=== PATIENT | male | born 1925 | race Caucasian/White ===

== ENCOUNTER 2017-04-22 07:15 | Observation (INO) | payer MEDICARE ==
[~2017-04-22] VITALS: Ht 152.4 cm; Wt 52.5 kg
[~2017-04-22 07:15] MED LIST: CIAL5TAB PO; CITA10TA4 PO; LEVO50TA4 PO; PRIM50TA5 PO; SIMV40TA PO; TAMS0.4C4 PO
[2017-04-22 08:15] VITALS: BP 120/65; PULSE 65; RESP 20; TEMP 98.1; O2SAT 95
[2017-04-22] MEDS ORDERED: METOPROLOL TARTRATE 25 MG TAB PO PRN (08:15)
[2017-04-22] MEDS ORDERED: INSULIN HUMAN REGULAR 1,000 UNITS/10 ML VIAL SQ PRN (08:15)
[2017-04-22] MEDS ORDERED: SODIUM CHLORID 0.9% 500 ML IV PRN (08:15)
[2017-04-22] MEDS ORDERED: CLINDAMYCIN 600 MG/NS 100 ML IV ONE ×2 (08:15)
[2017-04-22] MEDS ORDERED: POVIDONE IODINE 5% (ANTISEPSIS KIT) 4 APPLICATIONS EACH NARE PRN (08:15)
[2017-04-22] MEDS ORDERED: CHLORHEXIDINE GLUCONATE 2 % 1 PACK (2 CLOTHS) TOPICAL PRN (08:15)
[2017-04-22] MEDS ORDERED: LACTATED RINGER'S 1000 ML IV PRN (08:15)
[2017-04-22] MEDS ORDERED: SODIUM CHLORIDE 0.9% INJ 100 ML ONE (08:20)
--- NOTE | 2017-04-22 08:50 | EKG ---
Date Performed: 04/22/2017 Time Performed: 07:44:54 PTAGE: 89 years EKG: Sinus rhythm NORMAL ECG NO PREVIOUS TRACING DOCTOR: Florencio Sainz Interpretating Date/Time 04/22/2017 08:49:37
[2017-04-22] MEDS ORDERED: LIDOCAINE 1%/EPINEPHrine 1:100,000 SOLN 30 ML VIAL INFIL ONE (10:35)
[2017-04-22] MEDS ORDERED: THROMBIN (TOPICAL) 5,000 UNIT VIAL ONE (11:24)
[2017-04-22] MEDS ORDERED: GELFOAM SIZE 100 ONE (11:24)
[2017-04-22] MEDS ORDERED: PROPOFOL 200 MG/20 ML AMP IV ONE (12:00)
[2017-04-22] MEDS ORDERED: NEOSTIGMINE 3 MG/3 ML SYR IV ONE (12:00)
[2017-04-22] MEDS ORDERED: PHENYLEPH/NS 1000 MCG/10 ML SYR IV ONE (12:00)
[2017-04-22] MEDS ORDERED: ONDANSETRON HCL 4 MG/2 ML VIAL IV PUSH ONE (12:00)
[2017-04-22] MEDS ORDERED: ePHEDrine/NS 25 MG/5 ML SYR IV ONE (12:00)
[2017-04-22] MEDS ORDERED: fentaNYL CITRATE 250 MCG/5 ML AMP ONE (12:05)
[2017-04-22] MEDS: LACTATED RINGER'S 1000 ML INJ 1,000 ML IV SCH (12:30)
[2017-04-22] MEDS ORDERED: DO NOT ADM ANY ANTICOAGULANT DRUGS PRN (12:45)
[2017-04-22] MEDS ORDERED: ONDANSETRON HCL 4 MG/2 ML VIAL IV PUSH PRN (13:00)
[2017-04-22] MEDS ORDERED: ACETAMINOPHEN/HYDROcodone 325 MG/5 MG TAB PO PRN (13:00)
[2017-04-22] MEDS ORDERED: *morphine SULFATE 8 MG/ML PERIprocedure ONLY ONE (13:46)
[2017-04-22] MEDS: CLINDAMYCIN 600 MG/NS 100 ML IV SCH ×2 (18:07)
[2017-04-22 18:38] VITALS: O2SAT 98
[2017-04-22 20:00] VITALS: BP 137/77; PULSE 65; RESP 18; TEMP 96.8; O2SAT 98
[2017-04-22] MEDS ORDERED: CITALOPRAM HYDROBROMIDE 20 MG TAB PO SCH (21:00)
[2017-04-22] MEDS ORDERED: PRAVASTATIN SOD 80 MG TAB PO SCH (21:00)
[2017-04-22] MEDS: TAMSULOSIN HCL 0.4 MG CAP PO SCH (21:38)
[2017-04-22] MEDS: PRIMIDONE 50 MG TAB PO SCH (21:38)
[2017-04-23] VITALS: BP 135/64; PULSE 67; RESP 18; TEMP 96.5; O2SAT 96
[2017-04-23] MEDS: CLINDAMYCIN 600 MG/NS 100 ML IV SCH ×6 (00:13→15:27)
[2017-04-23 04:00] VITALS: BP 125/60; PULSE 71; RESP 18; TEMP 97.3; O2SAT 93
[2017-04-23] MEDS: LACTATED RINGER'S 1000 ML INJ 1,000 ML IV SCH ×2 (05:17→19:29)
[2017-04-23] MEDS ORDERED: LEVOTHYROXINE SODIUM 50 MCG TAB PO SCH (06:00)
[2017-04-23 08:00] VITALS: BP 128/62; PULSE 75; RESP 18; TEMP 98; O2SAT 91
[2017-04-23 08:16] VITALS: O2SAT 91
[2017-04-23] MEDS: PRIMIDONE 50 MG TAB PO SCH ×2 (08:32→19:28)
[2017-04-23] MEDS ORDERED: MUPI2OIN TOPICAL (08:43)
[2017-04-23] MEDS ORDERED: HYDR-3533 PO (08:43)
[2017-04-23] MEDS ORDERED: CIALIS 5 MG PO SCH (09:00)
[2017-04-23 12:00] VITALS: BP 122/56; PULSE 71; RESP 18; TEMP 97.9; O2SAT 93
[2017-04-23 16:00] VITALS: BP 110/50; PULSE 67; RESP 18; TEMP 97.3; O2SAT 95
[2017-04-23] MEDS: TAMSULOSIN HCL 0.4 MG CAP PO SCH (19:28)
--- NOTE | 2017-05-18 08:49 | MP ---
cc: TRESSA SUAREZ M.D. DATE OF SURGERY: April 22, [address] Tressa Suarez PREOPERATIVE DIAGNOSIS 1. 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 POSTOPERATIVE DIAGNOSIS 1. 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 OPERATION PERFORMED Right supraomohyoid neck dissection. INDICATIONS Marco Antonio Singh is a 89-year-old man with a many week history of an asymptomatic firm mass which appears to originate in the right submandibular salivary gland, extending into the submental triangle and over the lateral surface of the mandible near the mentum. Needle aspiration biopsy showed only lymphoid tissue, could not be further characterized. DESCRIPTION OF OPERATION The patient was taken to OR #6 and placed in the supine position. Following induction of general anesthesia and intubation a shoulder roll was put in place and the patient was positioned for surgery of the right neck. Neck was marked with a 10 cm line from the anterior border of the sternocleidomastoid muscle up to the midline. This was two fingerbreadths below the inferior border of the mandible. The line was injected with 6 mL of 1% Xylocaine with epinephrine 1:100,000. He was then prepped and draped for surgery. The hazel was then incised down to subplatysmal plane and flaps were elevated superiorly following the anterior border of sternocleidomastoid muscle and the inferior margin of the submandibular salivary gland. Dissection continued superiorly mobilizing the salivary gland from its surrounding fascial attachments. This was done on all surfaces including anteriorly and the posterior side the facial artery and vein were identified entering the gland at the posterior superior aspect, they were doubly clamped and ligated at this point. The mylohyoid muscle was retracted anteriorly and the [place]'s duct was identified. The lingual nerve was identified at the submandibular ganglion, this was then released and preserved within the neck. Dissection continued across the inferior margin of the mandible mobilizing the soft tissue and lymph nodes from this area. The gland tissue appeared normal but the neoplasm which was attached to it anteriorly was extending laterally and medially to the mandible, overlying soft tissue was mobilized using blunt and bipolar cautery dissection. The tumor was peeled off of the periosteum of the mandible medially and laterally and was included within the specimen. The wound was then irrigated and suctioned. A Blanca drain was placed into the depth of the wound, was sewn in place with a 3-0 Vicryl. Closure was then begun beginning with the platysma layer using interrupted sutures of 3-0 Vicryl. Skin was closed with a 4-0 Vicryl subcutaneous and 5-0 fast-absorbing plain gut in the outer layer. A [place] dressing was applied and the procedure was terminated. The patient was reversed from anesthesia and taken to recovery in good condition. There were no complications. Blood loss was 40 mL. MD GERSON Ruiz/CHRISTIANO /8:21 AM /8:39 AM
== END 2017-04-23 20:27 | disposition home or self-care (01) ==
LOC: HSDC 07:15 → EDBD 09:00 → N07B 15:39 → HSDC 17:13 → N07B 17:14
PROVIDERS: ADMIT Otolaryngology; ATTEND Otolaryngology
DX: C85.11 Unspecified B-cell lymphoma, lymph nodes of head, face, and neck (principal); K21.9 Gastro-esophageal reflux disease without esophagitis; F32.9 Major depressive disorder, single episode, unspecified; Z88.0 Allergy status to penicillin; Z01.810 Encounter for preprocedural cardiovascular examination
CPT/HCPCS: 00100; 42440; 88184; 88185; 88237; 88264; 88280; 88305; 88307; 88331; 88341; 88342; 88377; 93005; 96361; 96365; 96366; 96376; G0378; J2270; J2370; J2405; J2710; J3010; J7120